=== PATIENT | female | born 1970 | race Caucasian/White ===

== ENCOUNTER → 2017-01-17 | Outpatient (CLI) | payer BC ==
[~2017-01-17] MED LIST: ACCUVITE; AMOX875T PO; BCPILLS PO; GLUC1CAP33 PO; HYDR5SYP11 PO; ONDA4TAB10 SL; PRVHFAIN PO; [UNRECOGNIZED DRUG - OTHER] PO
--- NOTE | 2017-01-17 11:54 | DIAGNOSTIC IMAGING REPORT ---
CHEST 2 VIEWS ROUTINE CLINICAL HISTORY: R06.89 Difficulty [id number] dyspnea COMPARISON STUDY: No previous studies for comparison. FINDINGS: The bones soft tissues and hemidiaphragms are normal. The cardiomediastinal silhouette is normal. The lungs are clear. The pulmonary vasculature is normal. IMPRESSION: Negative chest. Electronically signed by: Jim Wong M.D. 01/17/2017 11:53 AM Dictated Date/Time: 01/17/2017 11:52 AM
== END | disposition home or self-care (01) ==
LOC: C.RAD1850 11:32
PROVIDERS: ATTEND Physician Assistant
DX: R06.89 Other abnormalities of breathing (principal)

== ENCOUNTER 2017-01-18 12:47 | Emergency (ER) | payer BC ==
[~2017-01-18] VITALS: Ht 165.1 cm; Wt 55.7 kg
[~2017-01-18 12:47] MED LIST changes: -AMOX875T PO; -BCPILLS PO; -GLUC1CAP33 PO; -HYDR5SYP11 PO; -ONDA4TAB10 SL; -PRVHFAIN PO
[2017-01-18 12:52] VITALS: TEMP 36.7
[2017-01-18] MEDS ORDERED: SODIUM CHLORIDE 0.9% 1000ML 1,000 ML IV STA (13:27)
[2017-01-18] MEDS ORDERED: ACETAMINOPHEN 500 MG TAB PO STA (13:27)
[2017-01-18] MEDS ORDERED: ALBUT/IPRATROP 3MG/0.5MG NEB 3 ML VIAL INH STA ×2 (13:29→15:23)
[2017-01-18] MEDS ORDERED: CIPROFLOXACIN HCL 0.3% OP SOLN 2.5 ML BTL OP STA (13:33)
[2017-01-18] MEDS ORDERED: ONDANSETRON INJ 2 MG/ML 2 ML VIAL IV STA (13:33)
[2017-01-18 13:53] VITALS: Ht 165.1 cm; Wt 55.7 kg
[2017-01-18 14:10] LABS: BASO % 0.4 %; BASO ABS # 0.05 K/uL (0-0.2); COMPLETE YES; EOS % 0.5 %; HEMATOCRIT 40.1 % (37-47); IG% 0.3 %; LYMPH % 10.2 %; LYMPH ABS # 1.35 K/uL (1.2-3.4); MEAN CELL VOLUME 93.5 fL (80-100); MEAN CORPUSCULAR HEMOGLOBIN 30.1 pg (25-34); MEAN CORPUSCULAR HGB CONC 32.2 g/dl (32-36); MEAN PLATELET VOLUME 9.6 fL (7.4-10.4); MONO % 10.1 %; NEUT % 78.5 %; PLATELET COUNT 268 K/uL (130-400); RED BLOOD COUNT 4.29 M/uL (4.2-5.4)
[2017-01-18 14:11] VITALS: O2SAT 94
[2017-01-18 14:22] LABS: ALT/SGPT 28 U/L (12-78); AST/SGOT 17 U/L (15-37); BLOOD UREA NITROGEN 10 mg/dl (7-18); BUN/CREATININE RATIO 14.4 (10-20); CALCIUM 8.3 mg/dl (8.5-10.1); CARBON DIOXIDE 29 mmol/L (21-32); CHLORIDE 103 mmol/L (98-107); GLUCOSE 103 mg/dl (70-99); POTASSIUM 3.9 mmol/L (3.5-5.1); SODIUM 138 mmol/L (136-145)
[2017-01-18 14:27] LABS: ALB/GLOB RATIO 0.9 (0.9-2); ALKALINE PHOSPHATASE 50 U/L (45-117)
[2017-01-18] MEDS ORDERED: KETOROLAC TROMETHAMINE 30 MG/ML VIAL IV STA (14:39)
[2017-01-18] MEDS ORDERED: HYDR5SYP11 PO (15:30)
[2017-01-18] MEDS ORDERED: AMOX875T PO (15:30)
[2017-01-18] MEDS ORDERED: AMOXICILLIN/CLAVULANATE TAB 875 MG TAB PO ONE (15:30)
[2017-01-18] MEDS ORDERED: ONDA4TAB10 SL (15:30)
[2017-01-18] MEDS ORDERED: PRVHFAIN PO (15:30)
[2017-01-18] MEDS ORDERED: GLUC1CAP33 PO (15:53)
[2017-01-18] MEDS ORDERED: BCPILLS PO (15:53)
[2017-01-18 16:15] VITALS: BP 127/72; PULSE 75; O2SAT 98
--- NOTE | 2017-01-18 17:37 | EMERGENCY ROOM VISIT NOTE ---
History Report prepared by Gini: Mario Moore Under the Supervision of: Dr. Jovanni Green M.D. First contact with patient: 13:16 Chief Complaint: HEADACHE Stated Complaint: HEADACHE,SINUS PRESSURE,TIGHT CHEST,EYE PAIN History of Present Illness The patient is a 47 year old female who presents to the Emergency Room with complaints of a headache that began 1 week ago. She rates her pain a 6/10 in severity. She has seen a doctor twice over this week. At first, she started having a cough with tightness in her chest. She began to cough up a lot of thick mucous. Over the next days, she began having a headache with right eye edema, erythema, and drainage. She noted sinus congestion and pressure. She got tested for pneumonia and strep, which came back negative. She was given Elizabeth, Prednisone, and Azithromycin. She stopped the Prednisone because it was not helping her. She is on her second day of the antibiotic. She is also experiencing sinus pressure, fatigue, and nausea. She had some sinus infections , migraines, and a concussion over her lifetime, but nothing severe. She did recently travel in the [place] by car and plane. Patient denies LOC, fevers, chills, diaphoresis, visual changes, neck pain, breathing difficulties, vomiting, abdominal pain, back pain, melena, hematochezia, urinary symptoms, numbness, weakness, lymphadenopathy, rash, or other complaints. Source of History: patient Onset: 1 week ago Position: head Symptom Intensity: 6/10 Quality: pressure Timing: constant Associated Symptoms: + chest pain (tightness), + cough, + fatigue, + nausea Note: She has sinus congestion and right eye edema, erythema, and drainage. Review of Systems See HPI for pertinent positives and negatives. A total of ten systems were reviewed and were otherwise negative. Past Medical & Surgical Medical Problems: (1) No Known Active Medical Problems Family History Cancer Kidney disease Kidney stones Social History Smoking Status: Never Smoker Smokeless Tobacco Use: No Alcohol Use: occasionally Drug Use: none Occupation Status: employed Current/Historical Medications Scheduled Amoxicillin & Pot Clavulanate (Augmentin 875-125 mg), 875 MG PO BID Control Pills ( Control Pills), 1 TAB PO DAILY Glucosamine-Chondroitin (Glucosamine & Chondroitin 500-400 mg), 1 CAP PO DAILY Multivitamins (Diatx Zinc *), 1 TAB PO DAILY Ondasetron Odt (Zofran Odt), 4 MG SL Q6H Scheduled PRN Albuterol (Ventolin Hfa), 2 PUFFS PO QID PRN for Wheezing Hydrocodone W/ Homatropine (Hycodan 5/1.5MG 5 Ml), 5 ML PO Q6H PRN for Cough Allergies Coded Allergies: No Known Allergies (Unverified , 01/18/17) Physical Exam Vital Signs Date Time Temp Pulse Resp B/P Pulse Ox O2 Delivery O2 Flow Rate FiO2 01/18/17 16:15 75 18 127/72 98 01/18/17 15:34 77 15 116/82 97 Room Air 01/18/17 14:11 94 Room Air 01/18/17 14:11 94 Room Air 01/18/17 13:43 74 01/18/17 12:52 36.7 94 16 141/98 94 Room Air Physical Exam GENERAL: Awake, alert, mildly ill appearing, no distress HEAD: Normocephalic, atraumatic. No edema. EYES: Erythematous conjunctiva on the right. Scleral injection present on right. Erythema and edema to the right eyelids. PERRL. EOMI. EARS: Right TM normal. Left TM normal. NOSE: Mild congestion. OROPHARYNX: Lips, tongue, and mucosa unremarkable. No erythema or exudate. NECK: Supple. No nuchal rigidity. FROM. Anterior cervical lymphadenopathy. Negative jolt accentuation test. RESPIRATORY: CTA bilaterally. No wheezes rales or rhonchi. CARDIAC: Borderline tachycardic rate, normal rhythm. ABDOMEN: Soft, non distended. No tenderness to palpation. NEURO: Normal sensorium. SKIN: No rash or jaundice noted Medical Decision & Procedures Laboratory Results 01/18/17 14:00 Red Blood Count 4.29, Mean Corpuscular Volume 93.5, Mean Corpuscular Hemoglobin 30.1, Mean Corpuscular Hemoglobin Concent 32.2, Mean Platelet Volume 9.6, Neutrophils (%) (Auto) 78.5, Lymphocytes (%) (Auto) 10.2, Monocytes (%) (Auto) 10.1, Eosinophils (%) (Auto) 0.5, Basophils (%) (Auto) 0.4, Neutrophils # (Auto ) 10.37, Lymphocytes # (Auto) 1.35, Monocytes # (Auto) 1.33, Eosinophils # (Auto ) 0.06, Basophils # (Auto) 0.05 01/18/17 14:00 Test 01/18/17 14:00 White Blood Count 13.20 K/uL (4.8-10.8) Red Blood Count 4.29 M/uL (4.2-5.4) Hemoglobin 12.9 g/dL (12.0-16.0) Hematocrit 40.1 % (37-47) Mean Corpuscular Volume 93.5 fL (80-100) Mean Corpuscular Hemoglobin 30.1 pg (25-34) Mean Corpuscular Hemoglobin Concent 32.2 g/dl (32-36) Platelet Count 268 K/uL (130-400) Mean Platelet Volume 9.6 fL (7.4-10.4) Neutrophils (%) (Auto) 78.5 % Lymphocytes (%) (Auto) 10.2 % Monocytes (%) (Auto) 10.1 % Eosinophils (%) (Auto) 0.5 % Basophils (%) (Auto) 0.4 % Neutrophils # (Auto) 10.37 K/uL (1.4-6.5) Lymphocytes # (Auto) 1.35 K/uL (1.2-3.4) Monocytes # (Auto) 1.33 K/uL (0.11-0.59) Eosinophils # (Auto) 0.06 K/uL (0-0.5) Basophils # (Auto) 0.05 K/uL (0-0.2) RDW Standard Deviation 46.2 fL (36.4-46.3) RDW Coefficient of Variation 13.5 % (11.5-14.5) Immature Granulocyte % (Auto) 0.3 % Immature Granulocyte # (Auto) 0.04 K/uL (0.00-0.02) Anion Gap 6.0 mmol/L (3-11) Est Creatinine Clear Calc Drug Dose 86.4 ml/min Estimated GFR () 118.7 Estimated GFR (Non- 102.5 BUN/Creatinine Ratio 14.4 (10-20) Calcium Level 8.3 mg/dl (8.5-10.1) Total Bilirubin 0.5 mg/dl (0.2-1) Aspartate Amino Transf (AST/SGOT) 17 U/L (15-37) Alanine Aminotransferase (ALT/SGPT) 28 U/L (12-78) Alkaline Phosphatase 50 U/L (45-117) Total Creatine Kinase 33 U/L (26-192) Creatine Kinase MB < 0.5 ng/ml (0.5-3.6) Creatine Kinase MB Ratio (0-3.0) Troponin I < 0.015 ng/ml (0-0.045) Pro-B-Type Natriuretic Peptide 246 pg/ml (0-450) Total Protein 7.5 gm/dl (6.4-8.2) Albumin 3.6 gm/dl (3.4-5.0) Globulin 3.9 gm/dl (2.5-4.0) Albumin/Globulin Ratio 0.9 (0.9-2) Laboratory results reviewed by me Medications Administered Medications (Trade) Dose Ordered Sig/Cabrera Route Start Time Stop Time Status Last Admin Dose Admin Acetaminophen 1000 mg 1,000 mg NOW STAT PO 01/18/17 13:27 01/18/17 13:31 DC 01/18/17 13:58 1,000 MG Sodium Chloride (Nss 1000ml) 1,000 ml @ 999 mls/hr Q1H1M STAT IV 01/18/17 13:27 01/18/17 14:27 DC 01/18/17 13:59 999 MLS/HR Albuterol/ Ipratropium (Duoneb) 3 ml NOW STAT INH 01/18/17 13:29 01/18/17 13:31 DC 01/18/17 13:58 3 ML Ciprofloxacin HCl (Ciprofloxacin 0.3% Op Soln) 1 drops NOW STAT OP 01/18/17 13:33 01/18/17 13:35 DC 01/18/17 13:58 1 DROPS Ondansetron HCl (Zofran Inj) 4 mg NOW STAT IV 01/18/17 13:33 01/18/17 13:36 DC 01/18/17 13:59 4 MG Ketorolac Tromethamine (Toradol Inj) 30 mg NOW STAT IV 01/18/17 14:39 01/18/17 14:40 DC 01/18/17 14:46 30 MG Amoxicillin/ Clavulanate Potassium (Augmentin Tab) 875 mg ONE ONCE PO 01/18/17 15:30 01/18/17 15:31 DC 01/18/17 15:32 875 MG Albuterol/ Ipratropium (Duoneb) 3 ml NOW STAT INH 01/18/17 15:23 01/18/17 15:24 DC 01/18/17 15:32 3 ML ECG Indication: chest pain Rate (beats per minute): 74 Rhythm: normal sinus Findings: no acute ischemic change, no ectopy ED Course 1316: The patient was evaluated in room C8. A complete history and physical exam was performed. 1327: Ordered Sodium Chloride 1000 ml @ 999 mls/hr IV, Tylenol Tab 1000 mg PO 1329: Ordered DuoNeb 3 ml INH 1333: Ordered Ondansetron HCl 4 mg IV, Ciprofloxacin HCl 1 drop OP 1439: Ordered Toradol Inj 30 mg IV 1523: Ordered DuoNeb 3 ml INH 1530: Ordered Augmentin Tab 875 mg PO 1545: After the second nebulizer treatment, the patient feels much better. 1611: I reevaluated the patient. Discussed results and discharge instructions: She verbalized understanding and agreement. The patient is ready for discharge. Medical Decision Triage Nursing notes reviewed. The patient's presentation and history were concerning for flulike symptoms. Etiologies such as viral syndrome, otitis, pharyngitis, pneumonia, sinusitis, conjunctivitis, sepsis, bacteremia, meningitis, cardiac sources, reactive airway disease, as well as others were entertained. The patient was evaluated. She was mildly ill appearing. She did not have any meningeal findings. She has anterior adenopathy, conjunctivitis, sinus congestion, and a heavy productive cough. I do not hear any significant crackles or wheezing. The patient just had a chest x-ray performed. I discussed deferring imaging as it would not change treatment management. Given the sinus issues and I recommended initiation of Augmentin for better coverage. The patient was in agreement. She was first hydrated with normal saline, Tylenol, Zofran, and IV Toradol. On reassessment she was doing much better and noted improvement with nebulizer treatment. The conjunctivitis was treated with Cipro drops. She was Given a second nebulizer treatment. On reassessment she was doing better. I discussed conservative management with her. She feels comfortable with close outpatient follow-up. If she worsens in any way she will be back to the emergency department for reevaluation. I did give her warning signs for pneumonia, meningitis, or worsening eye problems, as well as others. The patient's blood work did show a mild leukocytosis. She did finish prednisone the day before yesterday. The patient has an unremarkable chemistry panel, LFTs, cardiac markers and BNP. By the evaluation outlined above other emergent etiologies such as those listed in the differential, as well as others, were deemed relatively unlikely. The patient and daughter were informed about the findings as listed above. All questions were answered and they were pleased with the treatment. Return instructions were outlined and the patient was discharged in stable condition. The patient was referred to her PCP for follow-up Friday for a recheck of the current condition. The chart was completed utilizing [employer] Speech voice recognition software. Grammatical errors, random word insertions, pronoun errors, and incomplete sentences are an occasional consequence of this system due to software limitations, ambient noise, and hardware issues. Any formal questions or concerns about the content, text, or information contained within the body of this dictation should be directly addressed to the physician for clarification. [place] Drug Monitoring Program Search Results: patient reviewed within database, no issues identified Impression Primary Impression: Sinusitis Additional Impressions: Conjunctivitis Bronchitis Scribe Attestation The scribe's documentation has been prepared under my direction and personally reviewed by me in its entirety. I confirm that the note above accurately reflects all work, treatment, procedures, and medical decision making performed by me. Departure Information Dispostion Home / Self-Care Prescriptions Ondasetron Odt (ZOFRAN ODT) 4 Mg Tab 4 MG SL Q6H for Nausea, #6 TAB Prov: Jovanni Green MD 01/18/17 Albuterol (Ventolin Hfa) 60 Puffs/5400 Mcg Aers 2 PUFFS PO QID Y for Wheezing, #1 EA Prov: Jovanni Green MD 01/18/17 Hydrocodone W/ Homatropine (HYCODAN 5/1.5MG 5 ML) 1 Syp Syp 5 ML PO Q6H Y for Cough, #60 ML Prov: Jovanni Green MD 01/18/17 Amoxicillin & Pot Clavulanate (Augmentin 875-125 mg) 1 Tab Tab 875 MG PO BID for 10 Days, #19 TAB Prov: Jovanni Green MD 01/18/17 Referrals Anne Alfaro CRNP (PCP) Forms HOME CARE DOCUMENTATION FORM, IMPORTANT VISIT INFORMATION Patient Instructions [facility] Additional Instructions Amoxicillin Clavulanate (Augmentin) 875mg: Take one pill twice daily for 10 days for your infection. All antibiotics can cause diarrhea. If this occurs and you feel worse or it does not resolve in 1-2 days follow up with your doctor or return to the Emergency Department as this could be signs of serious underlying problems. Any medication can cause an allergic reaction, stop the pills immediately and return to the ER for rash, hives, breathing difficulties, or swelling. Cipro Eyedrops: One drop to affected eye(s) every 3-4 hours while awake for 3-5 days. If you are still having symptoms even may need to extend usage. Stop using if you develop severe pain or swelling. Return to the ER for evaluation. Finish the current prescription. Acetaminophen(Tylenol) may be used for fever or pain. Use 1000mg every six hours as needed. Avoid using more than 4000mg in a 24 hour period. (AND/OR) Ibuprofen(Motrin, Advil) may be used for fever or pain. Use 600mg every six hours as needed. Take with food. Avoid using more than 2400mg in a 24 hour period. Do not use 2400mg per day for more than three consecutive days without physician direction. Prolonged inappropriate use can lead to stomach upset or ulcers. Albuterol Inhaler: Take 2 puffs four times daily for seven days, then as needed. Hycodan cough syrup: use one teaspoon every six hours only as needed for severe cough. It is best for use at night since it will cause sedation. This is a narcotic medication. Avoid alcohol, operating machinery or dangerous equipment, working on ladders or roofs, DRIVING, or situations where being under the influence may be dangerous. It is recommended to use an over-the- counter stool softener such as Colace, 100mg twice daily while taking this medication to avoid constipation. Rest and drink plenty of fluids. Controlling your fever with Tylenol and Ibuprofen as above will make you feel better. Wash your hands after nose blowing, sneezing, or coughing. Most germs are spread through contact, therefore improper hygiene may result in your close contacts and loved ones becoming ill just like you. Cold compresses to the eye every 2-3 hours as needed for swelling or discomfort. Wash your hands very well as the eye infection, conjunctivitis, is very contagious Return to the ER for severe headache, neck stiffness, chest pain, difficulty breathing, fevers, vomiting, worsening of your condition, or as needed. Follow up with your primary physician this week for a recheck of your current condition. Problem Qualifiers
== END 2017-01-18 16:18 | disposition home or self-care (01) ==
LOC: C.EDB 12:48 → C.EDC 16:18
DX: J32.9 Chronic sinusitis, unspecified (principal); H10.9 Unspecified conjunctivitis; J40 Bronchitis, not specified as acute or chronic; Z79.899 Other long term (current) drug therapy; Z80.9 Family history of malignant neoplasm, unspecified; Z84.1 Family history of disorders of kidney and ureter

== ENCOUNTER → 2017-05-06 | Outpatient (CLI) | payer BC ==
[~2017-05-06] MED LIST changes: -ACCUVITE; +BCPILLS PO; +GLUC1CAP33 PO; +ONDA4TAB10 SL; +PRVHFAIN PO
[2017-05-06 14:51] LABS: URINE APPEARANCE TURBID (CLEAR); URINE BILIRUBIN NEG (NEG); URINE COLOR DK YELLOW; URINE EPITHELIAL CELL AUTO >30 /lpf (0-5); URINE NITRITE NEG (NEG); URINE SPECIFIC GRAVITY 1.028 (1.000-1.030); UROBILINOGEN NEG (NEG)
[2017-05-06 15:09] LABS: MANUAL MICROSCOPIC REQUIRED? NO; REVIEW REQ? NO
== END | disposition home or self-care (01) ==
LOC: C.LABSPEC 14:03
PROVIDERS: ATTEND Obstetrics & Gynecology
DX: L29.2 Pruritus vulvae (principal); R30.0 Dysuria

== ENCOUNTER → 2017-09-12 | Outpatient (CLI) | payer OTHER ==
[~2017-09-12] MED LIST changes: -ONDA4TAB10 SL
== END | disposition home or self-care (01) ==
LOC: C.PAPS 12:05
PROVIDERS: ATTEND Obstetrics & Gynecology
DX: Z12.4 Encounter for screening for malignant neoplasm of cervix (principal)